=== PATIENT | male | born 1985 | race Caucasian/White ===

== ENCOUNTER 2018-07-28 18:23 | Inpatient (IN) ==
--- NOTE | 2018-07-28 19:49 | Emergency Department Note ---
Disposition Clinical Impression: Suicidal ideation, Medical clearance for psychiatric admission Disposition: Still a Patient Condition: Undetermined Forms: ED Satisfaction Letter Time of Disposition: 01:07 Psych HPI - General Chief Complaint: ED Psychiatric Symptoms Stated Complaint: SI Time Seen by Provider: 07/28/18 19:26 Source: patient Mode of arrival: ambulatory Limitations: no limitations Nursing Notes Reviewed: Yes Vital Signs Reviewed: Yes - History of Present Illness HPI Narrative: 33-year-old male arrives to the emergency department with suicidal ideation. The patient described to me that he was having a large amount of stress. The patient states that he subsequently was feeling suicidal with plans to "blow my brains out, run in front of her truck, Jourdan someone and smoke all the crack until he has enough balls to do what he needs to do". The patient continues to describe to me that he suicidal and states that he wanted to just give the multiple bottles of pills were given overdose. The patient denies any other complaints at this time. - Related Data Allergies Allergy/AdvReac Type Severity Reaction Status Date / Time No Known Allergies Allergy Verified 07/28/18 18:41 All systems ED: reviewed and negative except as stated. Constitutional: Denies: fever, chills, weakness ENT ED: Denies: dysphagia Cardiovascular: Denies: chest pain Respiratory: Denies: dyspnea Gastrointestinal: Denies: abdominal pain Musculoskeletal: Reports: back pain (chronic) Neurological: Reports: headache (chronic) Psychiatric: Reports: depression, suicidal thoughts, homicidal thoughts. Denies: auditory hallucinations, visual hallucinations Past Medical History - Past Medical History Attestation: Yes The following information was validated with the patient. Source: patient Medical history: Reports: no medical history Psychiatric history: Reports: ADHD - Social History Smoking Status: Current every day smoker Alcohol use: Reports: none Drug use: Reports: none Physical Exam - General Limitations: no limitations General appearance: alert, in no apparent distress - Head Head exam: atraumatic - Eye Eye exam: Present: normal appearance, PERRL, EOMI - ENT ENT exam: normal exam, normal oropharynx, mucous membranes moist - Neck Neck exam: Present: normal inspection, full ROM, trachea midline - Chest Chest inspection: Present: normal inspection, symmetric chest wall rise - Respiratory Respiratory exam: Absent: respiratory distress - Cardiovascular Cardiovascular exam: Present: regular rate - Extremities Exam Extremities exam: Present: normal inspection, full ROM - Neurological Exam Neurological exam: Present: alert, oriented X3 - Psychiatric Psychiatric exam: Present: agitated, homicidal ideation, suicidal ideation - Skin Skin exam: Present: warm, dry, intact, normal color Course - Reevaluation(s) Reevaluation #1: Medically cleared. 1A called and will evaluate patient. Time: 21:01 Vital Signs Temperature 98.1 F 07/28/18 18:37 Pulse Rate 75 07/28/18 18:37 Respiratory Rate 16 07/28/18 18:37 Blood Pressure 134/67 07/28/18 18:37 O2 Sat by Pulse Oximetry 97 07/28/18 18:37 Temperature 98.1 F 07/28/18 18:37 Pulse Rate 75 07/28/18 18:37 Respiratory Rate 16 07/28/18 18:37 Blood Pressure 134/67 07/28/18 18:37 O2 Sat by Pulse Oximetry 97 07/28/18 18:37 Oxygen Delivery Oxygen Delivery Room Air Psych - MDM Narrative Medical decision making narrative: Patient care signed out to Dr. Quan - Lab Data Result diagrams: 07/28/18 19:50 07/28/18 19:50 Lab Results 07/28/18 07/28/18 07/28/18 Range/Units 19:50 19:50 20:13 WBC 11.6 H (4.3-11.1) K/mcL RBC 4.93 (4.19-5.50) M/mcL Hgb 15.4 (12.9-16.9) g/dL Hct 45.5 (37.5-50.1) % MCV 92.3 (83.0-100.0) fL MCH 31.2 (28.0-33.3) pg MCHC 33.8 (31.6-35.5) g/dL RDW 13.2 (11.5-14.5) % Plt Count 245 (140-400) K/mcL MPV 10.7 (9.4-12.4) fL Immature Gran % 0.3 (0-4) % Seg Neutrophils % 58.5 % Lymphocytes % 29.2 % Monocytes % 11.3 % Eosinophils % 0.3 % Basophils % 0.4 % Neutrophils # 6.8 (1.6-8.9) K/mcL Lymphocytes # 3.4 (0.6-4.6) K/mcL Monocytes # 1.3 (0.0-1.3) K/mcL Eosinophils # 0.0 (0.0-0.6) K/mcL Basophils # 0.1 (0.0-0.2) K/mcL Sodium 138 (136-145) mEq/L Potassium 4.0 (3.5-5.1) mEq/L Chloride 106 (98-107) mEq/L Carbon Dioxide 26 (23-29) mEq/L BUN 14 (6-20) mg/dL Creatinine 0.69 L (0.70-1.30) mg/dL Est GFR ( Amer) > 60 (> 60) Est GFR (Non-Af Amer) > 60 (> 60) BUN/Creatinine Ratio 20 (6-26) Glucose 90 (70-105) mg/dL Calculated Osmolality 286 (280-300) Calcium 9.5 (8.6-10.3) mg/dL Urine Color Yellow (Yellow) Urine Clarity Clear (Clear) Urine pH 6.0 (5.0-8.0) pH Units Ur Specific [place] 1.019 (1.010-1.025) Urine Protein Negative (Neg-Trace) mg/dL Urine Glucose (UA) Normal (Normal) mg/dL Urine Ketones 15 H (Negative) mg/dL Urine Blood Negative (Negative) Urine Nitrite Negative (Negative) Urine Bilirubin Negative (Negative) Urine Urobilinogen Normal (Normal) mg/dL Ur Leukocyte Esterase Negative (Negative) Salicylates < 2.5 L (15.0-30.0) mg/dL Urine Opiates Screen (Orvldp=866) ng/mL Acetaminophen < 10 L (10-20) mcg/mL Ur Barbiturates Screen (Icccqz=153) ng/mL Ur Phencyclidine Scrn (Cutoff=25) ng/mL Ur Amphetamines Screen (Ndjdpy=0985) ng/mL U Benzodiazepines Scrn (Vaaqyv=798) ng/mL Urine Cocaine Screen (Cutoff= 300) ng/mL U Marijuana (THC) Screen (Cutoff = 50) ng/mL Ur Drug Screen Interp Ethyl Alcohol < 10 (Less than 10) mg/dL 07/28/18 Range/Units 20:13 WBC (4.3-11.1) K/mcL RBC (4.19-5.50) M/mcL Hgb (12.9-16.9) g/dL Hct (37.5-50.1) % MCV (83.0-100.0) fL MCH (28.0-33.3) pg MCHC (31.6-35.5) g/dL RDW (11.5-14.5) % Plt Count (140-400) K/mcL MPV (9.4-12.4) fL Immature Gran % (0-4) % Seg Neutrophils % % Lymphocytes % % Monocytes % % Eosinophils % % Basophils % % Neutrophils # (1.6-8.9) K/mcL Lymphocytes # (0.6-4.6) K/mcL Monocytes # (0.0-1.3) K/mcL Eosinophils # (0.0-0.6) K/mcL Basophils # (0.0-0.2) K/mcL Sodium (136-145) mEq/L Potassium (3.5-5.1) mEq/L Chloride (98-107) mEq/L Carbon Dioxide (23-29) mEq/L BUN (6-20) mg/dL Creatinine (0.70-1.30) mg/dL Est GFR ( Amer) (> 60) Est GFR (Non-Af Amer) (> 60) BUN/Creatinine Ratio (6-26) Glucose (70-105) mg/dL Calculated Osmolality (280-300) Calcium (8.6-10.3) mg/dL Urine Color (Yellow) Urine Clarity (Clear) Urine pH (5.0-8.0) pH Units Ur Specific [place] (1.010-1.025) Urine Protein (Neg-Trace) mg/dL Urine Glucose (UA) (Normal) mg/dL Urine Ketones (Negative) mg/dL Urine Blood (Negative) Urine Nitrite (Negative) Urine Bilirubin (Negative) Urine Urobilinogen (Normal) mg/dL Ur Leukocyte Esterase (Negative) Salicylates (15.0-30.0) mg/dL Urine Opiates Screen Negative (Mutnxb=091) ng/mL Acetaminophen (10-20) mcg/mL Ur Barbiturates Screen Negative (Wlktsw=885) ng/mL Ur Phencyclidine Scrn Negative (Cutoff=25) ng/mL Ur Amphetamines Screen Negative (Eqimmn=4221) ng/mL U Benzodiazepines Scrn Negative (Babjce=204) ng/mL Urine Cocaine Screen Negative (Cutoff= 300) ng/mL U Marijuana (THC) Screen Negative (Cutoff = 50) ng/mL Ur Drug Screen Interp See Below Ethyl Alcohol (Less than 10) mg/dL Psychiatric Medical Clearance - Medical Clearance Checklist Medical History: No Social History Section defined Current Vitals: Last Vital Signs Temp 98.1 F 07/28/18 18:37 Pulse 75 07/28/18 18:37 Resp 16 07/28/18 18:37 BP 134/67 07/28/18 18:37 Pulse Ox 97 07/28/18 18:37 Psychiatric Lab Panel: Drug Levels and Toxicity 07/28/18 07/28/18 19:50 20:13 Urine Opiates Screen Negative Acetaminophen < 10 L Ur Barbiturates Screen Negative Ur Phencyclidine Scrn Negative Ur Amphetamines Screen Negative U Benzodiazepines Scrn Negative Urine Cocaine Screen Negative U Marijuana (THC) Screen Negative Ethyl Alcohol < 10 Abnormal Labs: Abnormal lab results WBC 11.6 K/mcL (4.3-11.1) H 07/28/18 19:50 0.69 mg/dL (0.70-1.30) L 07/28/18 19:50 15 mg/dL (Negative) H 07/28/18 20:13 Salicylates < 2.5 mg/dL (15.0-30.0) L 07/28/18 19:50 Acetaminophen < 10 mcg/mL (10-20) L 07/28/18 19:50 Statement of Medical Clearance: I have evaluated the patient, reviewed diagnostic information, and certify that the patient's medical condition is sufficiently stable that transfer to the psychiatric unit does not pose a significant risk of deterioration.
[2018-07-28 20:05] LABS: Basophils # 0.1 K/mcL (0.0-0.2); Basophils % 0.4 %; Eosinophils % 0.3 %; Hematocrit 45.5 % (37.5-50.1); Hemoglobin 15.4 g/dL (12.9-16.9); Immature Granulocytes % 0.3 % (0-4); Lymphocytes # 3.4 K/mcL (0.6-4.6); Lymphocytes % 29.2 %; Mean Corpuscular HGB Conc 33.8 g/dL (31.6-35.5); Mean Corpuscular Hemoglobin 31.2 pg (28.0-33.3); Mean Corpuscular Volume 92.3 fL (83.0-100.0); Mean Platelet Volume 10.7 fL (9.4-12.4); Monocytes # 1.3 K/mcL (0.0-1.3); Monocytes % 11.3 %; Neutrophils # 6.8 K/mcL (1.6-8.9); Platelet Count 245 K/mcL (140-400); Red Blood Count 4.93 M/mcL (4.19-5.50); Red Cell Distribution Width 13.2 % (11.5-14.5); Segmented Neutrophils % 58.5 %; White Blood Count 11.6 K/mcL (4.3-11.1)
[2018-07-28 20:24] LABS: Acetaminophen < 10 mcg/mL (10-20); BUN/Creatinine Ratio 20 (6-26); Blood Urea Nitrogen 14 mg/dL (6-20); Calcium 9.5 mg/dL (8.6-10.3); Carbon Dioxide 26 mEq/L (23-29); Chloride 106 mEq/L (98-107); Ethanol < 10 mg/dL (Less than 10); Glucose 90 mg/dL (70-105); Osmolality,Calculated 286 (280-300); Salicylate < 2.5 mg/dL (15.0-30.0); Sodium 138 mEq/L (136-145); eGFR For African Americans > 60 (> 60); eGFR For Non-African Americans > 60 (> 60)
[2018-07-28 20:28] LABS: Bilirubin,Urine Negative (Negative); Blood,Urine Negative (Negative); Clarity,Urine Clear (Clear); Color,Urine Yellow (Yellow); Glucose,Urine (UA) Normal (Normal); Ketones,Urine 15 mg/dL (Negative); Leukocyte Esterase,Urine Negative (Negative); Nitrite,Urine Negative (Negative); Protein,Urine Negative (Neg-Trace); Specific Gravity,Urine 1.019 (1.010-1.025); Urobilinogen,Urine Normal (Normal)
[2018-07-28 20:38] LABS: Amphetamine Screen,Urine Negative ng/mL (Cutoff=1000); Barbiturate Screen,Urine Negative ng/mL (Cutoff=200); Benzodiazepines Screen,Urine Negative ng/mL (Cutoff=200); Cannabinoid Screen,Urine Negative ng/mL (Cutoff = 50); Cocaine Screen,Urine Negative ng/mL (Cutoff= 300); Opiate Screen,Urine Negative ng/mL (Cutoff=300); Phencyclidine Screen,Urine Negative ng/mL (Cutoff=25)
--- NOTE | 2018-07-28 20:43 | Emergency Department Note ---
Disposition Clinical Impression: Suicidal ideation, Medical clearance for psychiatric admission Disposition: Admitted As Inpatient Condition: Fair Time of Disposition: 01:00 General Adult HPI - General Chief complaint: ED Psychiatric Symptoms Stated complaint: SI Time Seen by Provider: 07/28/18 19:26 Source: patient Mode of arrival: ambulatory Limitations: no limitations - History of Present Illness Pain Scale: 0 - Related Data Home Medications Medication Instructions Recorded Confirmed Ibuprofen [Ibu-200] 600 mg PO DAILY PRN 07/29/18 07/29/18 Allergies Allergy/AdvReac Type Severity Reaction Status Date / Time No Known Allergies Allergy Verified 07/29/18 08:20 Constitutional: Denies: fever, chills, weakness ENT ED: Denies: dysphagia Cardiovascular: Denies: chest pain Respiratory: Denies: dyspnea Gastrointestinal: Denies: abdominal pain Musculoskeletal: Reports: back pain (chronic) Neurological: Reports: headache (chronic) Psychiatric: Reports: depression, suicidal thoughts, homicidal thoughts. Denies: auditory hallucinations, visual hallucinations Past Medical History - Past Medical History Medical history: Reports: no medical history Psychiatric history: Reports: ADHD - Social History Smoking Status: Current every day smoker Alcohol use: Reports: none Drug use: Reports: none Physical Exam - General Limitations: no limitations General appearance: alert, in no apparent distress Course Vital Signs Temperature 98.1 F 07/28/18 18:37 Pulse Rate 75 07/28/18 18:37 Respiratory Rate 16 07/28/18 18:37 Blood Pressure 134/67 07/28/18 18:37 O2 Sat by Pulse Oximetry 97 07/28/18 18:37 Temperature 98.1 F 07/28/18 19:26 Pulse Rate 66 07/28/18 19:26 Respiratory Rate 18 07/28/18 19:26 Blood Pressure 118/80 07/28/18 19:26 O2 Sat by Pulse Oximetry 97 07/28/18 18:37 Oxygen Delivery Oxygen Delivery Room Air Medical Decision Making - Lab Data Result diagrams: 07/28/18 19:50 07/28/18 19:50 Lab Results 07/28/18 07/28/18 07/28/18 Range/Units 19:50 19:50 20:13 WBC 11.6 H (4.3-11.1) K/mcL RBC 4.93 (4.19-5.50) M/mcL Hgb 15.4 (12.9-16.9) g/dL Hct 45.5 (37.5-50.1) % MCV 92.3 (83.0-100.0) fL MCH 31.2 (28.0-33.3) pg MCHC 33.8 (31.6-35.5) g/dL RDW 13.2 (11.5-14.5) % Plt Count 245 (140-400) K/mcL MPV 10.7 (9.4-12.4) fL Immature Gran % 0.3 (0-4) % Seg Neutrophils % 58.5 % Lymphocytes % 29.2 % Monocytes % 11.3 % Eosinophils % 0.3 % Basophils % 0.4 % Neutrophils # 6.8 (1.6-8.9) K/mcL Lymphocytes # 3.4 (0.6-4.6) K/mcL Monocytes # 1.3 (0.0-1.3) K/mcL Eosinophils # 0.0 (0.0-0.6) K/mcL Basophils # 0.1 (0.0-0.2) K/mcL Sodium 138 (136-145) mEq/L Potassium 4.0 (3.5-5.1) mEq/L Chloride 106 (98-107) mEq/L Carbon Dioxide 26 (23-29) mEq/L BUN 14 (6-20) mg/dL Creatinine 0.69 L (0.70-1.30) mg/dL Est GFR ( Amer) > 60 (> 60) Est GFR (Non-Af Amer) > 60 (> 60) BUN/Creatinine Ratio 20 (6-26) Glucose 90 (70-105) mg/dL Calculated Osmolality 286 (280-300) Calcium 9.5 (8.6-10.3) mg/dL Urine Color Yellow (Yellow) Urine Clarity Clear (Clear) Urine pH 6.0 (5.0-8.0) pH Units Ur Specific [place] 1.019 (1.010-1.025) Urine Protein Negative (Neg-Trace) mg/dL Urine Glucose (UA) Normal (Normal) mg/dL Urine Ketones 15 H (Negative) mg/dL Urine Blood Negative (Negative) Urine Nitrite Negative (Negative) Urine Bilirubin Negative (Negative) Urine Urobilinogen Normal (Normal) mg/dL Ur Leukocyte Esterase Negative (Negative) Salicylates < 2.5 L (15.0-30.0) mg/dL Urine Opiates Screen (Ixztgn=301) ng/mL Acetaminophen < 10 L (10-20) mcg/mL Ur Barbiturates Screen (Fsnwrl=719) ng/mL Ur Phencyclidine Scrn (Cutoff=25) ng/mL Ur Amphetamines Screen (Huvgfx=5826) ng/mL U Benzodiazepines Scrn (Oqmagp=931) ng/mL Urine Cocaine Screen (Cutoff= 300) ng/mL U Marijuana (THC) Screen (Cutoff = 50) ng/mL Ur Drug Screen Interp Ethyl Alcohol < 10 (Less than 10) mg/dL 07/28/18 Range/Units 20:13 WBC (4.3-11.1) K/mcL RBC (4.19-5.50) M/mcL Hgb (12.9-16.9) g/dL Hct (37.5-50.1) % MCV (83.0-100.0) fL MCH (28.0-33.3) pg MCHC (31.6-35.5) g/dL RDW (11.5-14.5) % Plt Count (140-400) K/mcL MPV (9.4-12.4) fL Immature Gran % (0-4) % Seg Neutrophils % % Lymphocytes % % Monocytes % % Eosinophils % % Basophils % % Neutrophils # (1.6-8.9) K/mcL Lymphocytes # (0.6-4.6) K/mcL Monocytes # (0.0-1.3) K/mcL Eosinophils # (0.0-0.6) K/mcL Basophils # (0.0-0.2) K/mcL Sodium (136-145) mEq/L Potassium (3.5-5.1) mEq/L Chloride (98-107) mEq/L Carbon Dioxide (23-29) mEq/L BUN (6-20) mg/dL Creatinine (0.70-1.30) mg/dL Est GFR ( Amer) (> 60) Est GFR (Non-Af Amer) (> 60) BUN/Creatinine Ratio (6-26) Glucose (70-105) mg/dL Calculated Osmolality (280-300) Calcium (8.6-10.3) mg/dL Urine Color (Yellow) Urine Clarity (Clear) Urine pH (5.0-8.0) pH Units Ur Specific [place] (1.010-1.025) Urine Protein (Neg-Trace) mg/dL Urine Glucose (UA) (Normal) mg/dL Urine Ketones (Negative) mg/dL Urine Blood (Negative) Urine Nitrite (Negative) Urine Bilirubin (Negative) Urine Urobilinogen (Normal) mg/dL Ur Leukocyte Esterase (Negative) Salicylates (15.0-30.0) mg/dL Urine Opiates Screen Negative (Avljpw=004) ng/mL Acetaminophen (10-20) mcg/mL Ur Barbiturates Screen Negative (Mztxcu=496) ng/mL Ur Phencyclidine Scrn Negative (Cutoff=25) ng/mL Ur Amphetamines Screen Negative (Lgxnbn=5718) ng/mL U Benzodiazepines Scrn Negative (Cnuffd=825) ng/mL Urine Cocaine Screen Negative (Cutoff= 300) ng/mL U Marijuana (THC) Screen Negative (Cutoff = 50) ng/mL Ur Drug Screen Interp See Below Ethyl Alcohol (Less than 10) mg/dL Attestation Statement - Attestation Attestation: I examined this patient and my medical decision-making was reviewed with the Resident Physician. I agree with the documented findings, disposition and treatment plan as described except to the extent set forth below. Patient to the ED for suicidal thoughts with multiple plans of how he would kill himself. He cites recent stressors. Patient, cooperative on exam. Plan. Med ica clearance and by by 1A. Patient was evaluated by 1A. Awaiting disposition. Patient was signed out to rental clerk.
--- NOTE | 2018-07-29 01:49 | Emergency Department Note ---
Disposition Clinical Impression: Suicidal ideation, Medical clearance for psychiatric admission Disposition: Admitted As Inpatient Condition: Fair Referrals: NONE,PCP [Primary Care Provider] - Forms: ED Satisfaction Letter Time of Disposition: 01:49 General Adult HPI - General Chief complaint: ED Psychiatric Symptoms Stated complaint: SI Time Seen by Provider: 07/28/18 19:26 Source: patient Mode of arrival: ambulatory Limitations: no limitations - History of Present Illness Pain Scale: 0 - Related Data Allergies Allergy/AdvReac Type Severity Reaction Status Date / Time No Known Allergies Allergy Verified 07/28/18 18:41 Constitutional: Denies: fever, chills, weakness ENT ED: Denies: dysphagia Cardiovascular: Denies: chest pain Respiratory: Denies: dyspnea Gastrointestinal: Denies: abdominal pain Musculoskeletal: Reports: back pain (chronic) Neurological: Reports: headache (chronic) Psychiatric: Reports: depression, suicidal thoughts, homicidal thoughts. Denies: auditory hallucinations, visual hallucinations Past Medical History - Past Medical History Medical history: Reports: no medical history Psychiatric history: Reports: ADHD - Social History Smoking Status: Current every day smoker Alcohol use: Reports: none Drug use: Reports: none Physical Exam - General Limitations: no limitations General appearance: alert, in no apparent distress Course Course Narrative: This patient was signed out to me at shift change from Dr. Solis and Dr. Ramirez. Please refer to their notes for complete details of the history and physical examination. Patient presented with suicidal ideation and has been medically cleared. At shift change when the patient was signed out to me he is awaiting psychiatric evaluation. Patient was seen and evaluated in the emergency department by the [address] psychiatry department and after evaluation patient is being admitted to the [address] psychiatric unit. Vital Signs Temperature 98.1 F 07/28/18 18:37 Pulse Rate 75 07/28/18 18:37 Respiratory Rate 16 07/28/18 18:37 Blood Pressure 134/67 07/28/18 18:37 O2 Sat by Pulse Oximetry 97 07/28/18 18:37 Temperature 98.1 F 07/28/18 18:37 Pulse Rate 75 07/28/18 18:37 Respiratory Rate 16 07/28/18 18:37 Blood Pressure 134/67 07/28/18 18:37 O2 Sat by Pulse Oximetry 97 07/28/18 18:37 Oxygen Delivery Oxygen Delivery Room Air Medical Decision Making - Lab Data Result diagrams: 07/28/18 19:50 07/28/18 19:50 Lab Results 07/28/18 07/28/18 07/28/18 Range/Units 19:50 19:50 20:13 WBC 11.6 H (4.3-11.1) K/mcL RBC 4.93 (4.19-5.50) M/mcL Hgb 15.4 (12.9-16.9) g/dL Hct 45.5 (37.5-50.1) % MCV 92.3 (83.0-100.0) fL MCH 31.2 (28.0-33.3) pg MCHC 33.8 (31.6-35.5) g/dL RDW 13.2 (11.5-14.5) % Plt Count 245 (140-400) K/mcL MPV 10.7 (9.4-12.4) fL Immature Gran % 0.3 (0-4) % Seg Neutrophils % 58.5 % Lymphocytes % 29.2 % Monocytes % 11.3 % Eosinophils % 0.3 % Basophils % 0.4 % Neutrophils # 6.8 (1.6-8.9) K/mcL Lymphocytes # 3.4 (0.6-4.6) K/mcL Monocytes # 1.3 (0.0-1.3) K/mcL Eosinophils # 0.0 (0.0-0.6) K/mcL Basophils # 0.1 (0.0-0.2) K/mcL Sodium 138 (136-145) mEq/L Potassium 4.0 (3.5-5.1) mEq/L Chloride 106 (98-107) mEq/L Carbon Dioxide 26 (23-29) mEq/L BUN 14 (6-20) mg/dL Creatinine 0.69 L (0.70-1.30) mg/dL Est GFR ( Amer) > 60 (> 60) Est GFR (Non-Af Amer) > 60 (> 60) BUN/Creatinine Ratio 20 (6-26) Glucose 90 (70-105) mg/dL Calculated Osmolality 286 (280-300) Calcium 9.5 (8.6-10.3) mg/dL Urine Color Yellow (Yellow) Urine Clarity Clear (Clear) Urine pH 6.0 (5.0-8.0) pH Units Ur Specific [place] 1.019 (1.010-1.025) Urine Protein Negative (Neg-Trace) mg/dL Urine Glucose (UA) Normal (Normal) mg/dL Urine Ketones 15 H (Negative) mg/dL Urine Blood Negative (Negative) Urine Nitrite Negative (Negative) Urine Bilirubin Negative (Negative) Urine Urobilinogen Normal (Normal) mg/dL Ur Leukocyte Esterase Negative (Negative) Salicylates < 2.5 L (15.0-30.0) mg/dL Urine Opiates Screen (Jqwobm=867) ng/mL Acetaminophen < 10 L (10-20) mcg/mL Ur Barbiturates Screen (Khdkde=313) ng/mL Ur Phencyclidine Scrn (Cutoff=25) ng/mL Ur Amphetamines Screen (Gtfvgi=9937) ng/mL U Benzodiazepines Scrn (Jozjux=512) ng/mL Urine Cocaine Screen (Cutoff= 300) ng/mL U Marijuana (THC) Screen (Cutoff = 50) ng/mL Ur Drug Screen Interp Ethyl Alcohol < 10 (Less than 10) mg/dL 07/28/18 Range/Units 20:13 WBC (4.3-11.1) K/mcL RBC (4.19-5.50) M/mcL Hgb (12.9-16.9) g/dL Hct (37.5-50.1) % MCV (83.0-100.0) fL MCH (28.0-33.3) pg MCHC (31.6-35.5) g/dL RDW (11.5-14.5) % Plt Count (140-400) K/mcL MPV (9.4-12.4) fL Immature Gran % (0-4) % Seg Neutrophils % % Lymphocytes % % Monocytes % % Eosinophils % % Basophils % % Neutrophils # (1.6-8.9) K/mcL Lymphocytes # (0.6-4.6) K/mcL Monocytes # (0.0-1.3) K/mcL Eosinophils # (0.0-0.6) K/mcL Basophils # (0.0-0.2) K/mcL Sodium (136-145) mEq/L Potassium (3.5-5.1) mEq/L Chloride (98-107) mEq/L Carbon Dioxide (23-29) mEq/L BUN (6-20) mg/dL Creatinine (0.70-1.30) mg/dL Est GFR ( Amer) (> 60) Est GFR (Non-Af Amer) (> 60) BUN/Creatinine Ratio (6-26) Glucose (70-105) mg/dL Calculated Osmolality (280-300) Calcium (8.6-10.3) mg/dL Urine Color (Yellow) Urine Clarity (Clear) Urine pH (5.0-8.0) pH Units Ur Specific [place] (1.010-1.025) Urine Protein (Neg-Trace) mg/dL Urine Glucose (UA) (Normal) mg/dL Urine Ketones (Negative) mg/dL Urine Blood (Negative) Urine Nitrite (Negative) Urine Bilirubin (Negative) Urine Urobilinogen (Normal) mg/dL Ur Leukocyte Esterase (Negative) Salicylates (15.0-30.0) mg/dL Urine Opiates Screen Negative (Yggxlr=571) ng/mL Acetaminophen (10-20) mcg/mL Ur Barbiturates Screen Negative (Ibkrgm=159) ng/mL Ur Phencyclidine Scrn Negative (Cutoff=25) ng/mL Ur Amphetamines Screen Negative (Avjmtr=4408) ng/mL U Benzodiazepines Scrn Negative (Eqkfxz=387) ng/mL Urine Cocaine Screen Negative (Cutoff= 300) ng/mL U Marijuana (THC) Screen Negative (Cutoff = 50) ng/mL Ur Drug Screen Interp See Below Ethyl Alcohol (Less than 10) mg/dL
[2018-07-29] MEDS ORDERED: Haloperidol Lactate 5 MG/ML VIAL IM PRN (02:04)
[2018-07-29] MEDS ORDERED: Mag Hydrox/Al Hydrox/Simeth 30 ML UDC PO PRN (02:04)
[2018-07-29] MEDS ORDERED: *HR* LORazepam 1 MG TABLET PO PRN (02:04)
[2018-07-29] MEDS ORDERED: *HR* LORazepam 2 MG/ML VIAL IM PRN (02:04)
[2018-07-29] MEDS ORDERED: MOM Conc 10 ML UD.LIQ PO PRN (02:04)
[2018-07-29] MEDS: hydrOXYzine pamoate 25 MG CAPSULE PO PRN ×2 (03:12→20:54)
[2018-07-29] MEDS: Acetaminophen 325 MG TABLET PO PRN (03:12)
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
[2018-07-29] MEDS: Nicotine 21 MG PATCH.TD24 TD SCH (15:12)
[2018-07-30] MEDS: Nicotine 21 MG PATCH.TD24 TD SCH (09:21)
[2018-07-30] MEDS: hydrOXYzine pamoate 25 MG CAPSULE PO PRN ×3 (09:22→20:44)
--- NOTE | 2018-07-30 16:18 | Psychiatry Progress Note ---
Date of Encounter: 07/30/18 Time of Encounter: 15:00 Subjective Interval history: Patient took his Seroquel last evening and stated it did not do much to help him sleep. He has not been participating on the unit much as he does not like to be around people. He has eaten very little and has been eating cookies and snacks as he can take them off his tray cause he does not want to sit in the day room to eat. He has taken a dose or two of Seroquel to help calm his agitation and feels it may help some, but could do more. He denies any adverse side effects. He still does not feel hopeful and focuses on not wanting to be here. We talked briefly about housing once he is ready for discharge. He wants to potentially go back to [place]. I told him that the social science teacher may be able to facilitate that, but he would have to wait to meet with him on Wednesday. He verbalizes wanting to smoke and tells me that he may try to eat later tonight once dinner gets here. He will wait till others are done. I will let nursing know that they may delay a bit in removing the trays. He will not comment on SI. He tells me, "not much has changed". No HI or threat to others. He will continue to stay in his room and rest as not to be agitated by others on the unit. Review of Systems Psychiatric: Reports: depression, anxiety, abnormal sleep pattern, suicidal ideation (passive), change in appetite, anhedonia, difficulty concentrating, hopelessness, irritability, mood swings Results - Vital Signs Vital Signs: Temp Pulse Resp BP Pulse Ox 98.3 F 95 18 101/70 96 07/30/18 09:00 07/30/18 09:00 07/30/18 09:00 07/30/18 09:00 07/30/18 09:00 Assessment and Plan (1) Suicidal ideation Current visit: Yes Status: Acute Plan: Continue hospitalization, Close observation, Suicide Precautions per unit protocol Risks, benefits, side effects, alternatives discussed w/pt: Yes (Continue use of Seroquel. He is less agressive in his responses today) Patient agreeable to treatment: No (on a 72 hour hold) (2) Mood disorder as late effect of traumatic brain injury Current visit: Yes Status: Acute Plan: Continue hospitalization, Close observation, Suicide Precautions per unit protocol, Encourage participation in unit milieu, Monitor sleep Risks, benefits, side effects, alternatives discussed w/pt: Yes (Increase Seroquel to 200 mg po qHS and 100 mg po bid prn) Patient agreeable to treatment: No (72 hour hold) Consult Discharge Plan - Plan Referrals: NONE,PCP [Primary Care Provider] - Psychiatry Exam - Constitutional Vitals: Temp Pulse Resp BP Pulse Ox 98.3 F 95 18 101/70 96 07/30/18 09:00 07/30/18 09:00 07/30/18 09:00 07/30/18 09:00 07/30/18 09:00 General appearance: age & developmentally appropriate, well-groomed - Musculoskeletal Gait: normal Station: stiff Strength & Tone: normal for patient - Psychiatric Patient Orientation: Yes Person, Yes Time, Yes Place, Yes Circumstance Level of alertness: Alert, Follows commands Behavior: cooperative (more so today), anxious (much less anxious) Psychomotor activity: Normal Eye Contact: Maintains Eye Contact Mood Description: Anxious Affect description: congruent with mood Speech Volume: Normal Speech pattern: normal rate, normal rhythm, normal tone, fluent Language & Vocabulary: consistent with education Thought Process: Intact, Linear, Circumstantial, Perseveration (less so today), [place] Thought Content: Yes Suicidal ideation (passive, no intent or active plan) Attention Span Ability: Capable of Focused Attention Memory Description: Grossly Intact Patient Reliability: Reliable Historian Fund of knowledge: Yes average Intelligence Estimate: Average Judgment: Fair (Improved.) Insight: Partial
[2018-07-30] MEDS: Acetaminophen 325 MG TABLET PO PRN (20:46)
[2018-07-31] MEDS: hydrOXYzine pamoate 25 MG CAPSULE PO PRN ×4 (07:37→20:21)
[2018-07-31] MEDS: Nicotine 21 MG PATCH.TD24 TD SCH (10:26)
--- NOTE | 2018-07-31 11:11 | Psychiatry Progress Note ---
Date of Encounter: 07/31/18 Time of Encounter: 10:45 Subjective Interval history: When I asked the patient how he is doing, he makes a joke and states "how would you fckin' be doin' if you were locked in this place want to go have a smoke". I acknowledged his frustration. I asked him how the increase in Seroquel effected him. He tells me he does not think it is helping. He thinks he only slept 3 or 4 hours cumulatively In the past 24 hours. Nursing has him documented having slept over 8 hours last night. He denies any side effects of the Seroquel. He is much less agitated, less aggressive in his speech, calmer on phone conversations and in talking to other patients and staff. He was out yesterday afternoon and evening on the unit eating dinner with other patients, which was a change from his previous behavior. He denies suicidal homicidal ideation. He denies auditory or visual hallucinations. He still feels anxious but is not as focused on his depression, is no longer perseverating on his extensive life issues that brought him in here depressed and anxious. We discussed discharge planning. He is still unsure if he wants to go back to [facility] or stay in [place] [facility]. He states that he will try and think things through tonight and present options for the social services designee tomorrow that he thinks will be functional. He is trying to get phone numbers for contacts to have a place to go. Review of Systems Psychiatric: Reports: depression, anxiety, abnormal sleep pattern, suicidal ideation (passive), change in appetite, anhedonia, difficulty concentrating, hopelessness, irritability, mood swings Results - Vital Signs Vital Signs: Temp Pulse Resp BP Pulse Ox 98 F 79 18 104/69 96 07/31/18 09:00 07/31/18 09:00 07/31/18 09:00 07/31/18 09:00 07/31/18 09:00 Assessment and Plan (1) Suicidal ideation Current visit: Yes Status: Acute Risks, benefits, side effects, alternatives discussed w/pt: Yes (Continue use of Seroquel. He is less agressive in his responses today) Patient agreeable to treatment: No (on a 72 hour hold) (2) Mood disorder as late effect of traumatic brain injury Current visit: Yes Status: Acute Plan: Continue hospitalization, Close observation, Suicide Precautions per unit protocol, Group Therapy, Monitor sleep Risks, benefits, side effects, alternatives discussed w/pt: Yes (Continue Seroquel to 200 mg po qHS and 100 mg po bid prn) Patient agreeable to treatment: No (72 hour hold) Consult Discharge Plan - Plan Referrals: NONE,PCP [Primary Care Provider] - Psychiatry Exam - Constitutional Vitals: Temp Pulse Resp BP Pulse Ox 98 F 79 18 104/69 96 07/31/18 09:00 07/31/18 09:00 07/31/18 09:00 07/31/18 09:00 07/31/18 09:00 General appearance: age & developmentally appropriate, thin Additional observations: AIMS=0 - Musculoskeletal Gait: normal Station: stiff (less) Strength & Tone: normal for patient - Psychiatric Patient Orientation: Yes Person, Yes Time, Yes Place, Yes Circumstance Level of alertness: Alert, Follows commands Behavior: cooperative, anxious (less), agitated (no) Psychomotor activity: Normal Eye Contact: Maintains Eye Contact Mood Description: Anxious Affect description: congruent with mood Speech Volume: Normal Speech pattern: normal rate, normal rhythm, normal tone, fluent Language & Vocabulary: consistent with education Thought Process: Intact, Logical, Linear, Goal Oriented Thought Content: Yes Intact Attention Span Ability: Capable of Focused Attention Memory Description: Grossly Intact Patient Reliability: Questionable Historian Fund of knowledge: Yes average Intelligence Estimate: Average Judgment: Fair Insight: Partial
[2018-08-01] MEDS: Nicotine 21 MG PATCH.TD24 TD SCH (09:10)
--- NOTE | 2018-08-01 09:30 | Psychiatry Progress Note ---
Date of Encounter: 08/01/18 Time of Encounter: 09:00 Subjective Interval history: Chief complaint: "I need a stronger nerve pill. Those a doing shit." Patient very demanding. He was overheard telling the nurse who was walking him to my office "I would be happy to kick upside the head" and then said that she had an attitude when he walked into my office. He had numerous complaints including not being allowed to smoke. He said that his Seroquel is not helping him sleep. He said the Vistaril is not strong enough. He talked about Xanax and that he had seen that worked wonders for people in the past. We spoke again about trying an anticonvulsant such as Depakote to help with his irritability and anger and mood lability related to his traumatic brain injury however he was not interested in this. He was willing to increase his Seroquel. He denied suicidal or homicidal thoughts ideations or plans. No psychosis. He said he was further upset because he found out his fiance had gotten back with her ex- while he was in here. Review of Systems Psychiatric: Reports: abnormal sleep pattern, irritability, mood swings Results - Vital Signs Vital Signs: Temp Pulse Resp BP Pulse Ox 98.1 F 75 16 103/67 96 07/31/18 19:50 07/31/18 19:50 07/31/18 19:50 07/31/18 19:50 07/31/18 19:50 Assessment and Plan (1) Mood disorder as late effect of traumatic brain injury Current visit: Yes Status: Acute Plan: Continue hospitalization, Close observation, Suicide Precautions per unit protocol, Encourage participation in unit milieu, Group Therapy, Monitor sleep, Monitor appetite Additional Plan: Increase Seroquel to 300 mg by mouth daily at bedtime for further mood stabilization. We discussed risk benefit side effects of this alternative treatment options he gave informed consent. [facility] to see him for possible placement there. Encourage group attendance. Risks, benefits, side effects, alternatives discussed w/pt: Yes (Continue Seroquel to 200 mg po qHS and 100 mg po bid prn) Patient agreeable to treatment: No (72 hour hold) Consult Discharge Plan - Plan Referrals: NONE,PCP [Primary Care Provider] - Psychiatry Exam - Constitutional Vitals: Temp Pulse Resp BP Pulse Ox 98.1 F 75 16 103/67 96 07/31/18 19:50 07/31/18 19:50 07/31/18 19:50 07/31/18 19:50 07/31/18 19:50 General appearance: age & developmentally appropriate - Musculoskeletal Gait: normal Station: relaxed Strength & Tone: normal for patient - Psychiatric Patient Orientation: Yes Person, Yes Time, Yes Place, Yes Circumstance Level of alertness: Alert Behavior: dramatic Psychomotor activity: Normal Eye Contact: Maintains Eye Contact Mood Description: Irritable Patient description of mood: "Pissed" Affect description: congruent with mood Speech Volume: Normal Speech pattern: normal rate Language & Vocabulary: consistent with education Thought Process: Intact Thought Content: No Suicidal ideation, No Homicidal ideation Perceptual Disturbances: No Auditory hallucinations, No Visual hallucinations Attention Span Ability: Capable of Focused Attention Memory Description: Grossly Intact Patient Reliability: Reliable Historian Fund of knowledge: Yes below average Intelligence Estimate: Below Average Judgment: Limited Insight: Minimal
[2018-08-01] MEDS: hydrOXYzine pamoate 25 MG CAPSULE PO PRN ×2 (11:53→20:14)
--- NOTE | 2018-08-02 09:02 | Discharge Summary ---
Date of Encounter: 08/02/18 Time of Encounter: 08:45 Diagnosis - Discharge Diagnosis (1) Mood disorder as late effect of traumatic brain injury Status: Acute Medications - Discharge Medications Prescriptions: Cyclobenzaprine [Flexeril] 5 mg PO TID PRN #45 tablet PRN Reason: Spasms hydrOXYzine pamoate [HydrOXYzine Pamoate] 50 mg PO TID PRN #90 capsule PRN Reason: Anxiety Quetiapine Fumarate [Seroquel] 100 mg PO BID PRN #30 tablet PRN Reason: Anxiety Quetiapine Fumarate [Seroquel] 400 mg PO HS #15 tablet Cyclobenzaprine [Flexeril] 5 mg PO TID PRN #45 tablet 08/02/18 [Rx] Quetiapine Fumarate [Seroquel] 100 mg PO BID PRN #30 tablet 08/02/18 [Rx] Quetiapine Fumarate [Seroquel] 400 mg PO HS #15 tablet 08/02/18 [Rx] hydrOXYzine pamoate [HydrOXYzine Pamoate] 50 mg PO TID PRN #90 capsule 08/02/18 [Rx] Allergy/AdvReac Type Severity Reaction Status Date / Time No Known Allergies Allergy Verified 07/29/18 08:20 Results Procedures and tests throughout hospitalization: Completed Lab Orders Category Date Time Status Acetaminophen Stat Lab 07/28/18 19:50 Completed Basic Metabolic Panel Stat Lab 07/28/18 19:50 Completed Complete Blood Count [HEME] Stat Lab 07/28/18 19:50 Completed Drug Screen, Urine [UCHEM] Stat Lab 07/28/18 20:13 Completed Ethanol Stat Lab 07/28/18 19:50 Completed Salicylate Stat Lab 07/28/18 19:50 Completed Urinalysis reflex Microscopic [URIN] Stat Lab 07/28/18 20:13 Completed Provider Date of admission: 07/29/18 02:01 Primary care physician: PCP NONE Discharging clinician: Kori Garcia Psychiatry Exam - Constitutional Vitals: Temp Pulse Resp BP Pulse Ox 98.6 F 86 16 113/71 97 08/01/18 19:37 08/01/18 19:37 08/01/18 19:37 08/01/18 19:37 08/01/18 09:00 General appearance: age & developmentally appropriate, well-groomed, well- nourished - Musculoskeletal Gait: normal Station: relaxed Strength & Tone: normal for patient - Psychiatric Patient Orientation: Yes Person, Yes Time, Yes Place Level of alertness: Alert Behavior: calm, cooperative Psychomotor activity: Normal Eye Contact: Maintains Eye Contact Mood Description: Euthymic/stable Patient description of mood: Good Affect description: congruent with mood, full range Speech Volume: Normal Speech pattern: normal rate, normal rhythm, normal tone, fluent, spontaneous Language & Vocabulary: consistent with education Thought Process: Linear, Goal Oriented Thought Content: No Suicidal ideation, No Homicidal ideation, No Overt delusions Perceptual Disturbances: No Auditory hallucinations, No Visual hallucinations Attention Span Ability: Capable of Focused Attention Memory Description: Grossly Intact Patient Reliability: Reliable Historian Fund of knowledge: Yes abstraction ability, Yes aware of current events Intelligence Estimate: Average Judgment: Good Insight: Full Hospital Course Hospital course: Mr. Grimaldo is a 33 year old male who was admitted for depression and psychotic symptoms. He was started on Seroquel which he had done well on in the past which was titrated up. He was encouraged to consider Depakote or another mood stabilizer given his history of a TBI and agitation at times however he declined this and had capacity to make this decision. He did have some periods of belligerent behavior on the unit toward staff when he felt his needs are not getting met consistent with antisocial personality disorder. He used when nece ssary Vistaril for anxiety.Patient was educated of diagnosis and the risk- benefit side effects of this alternative treatment options and was monitored for responsiveness and side effects. Mood anxiety sleep and appetite interest improved as did future orientation. Self-harm thoughts subsided, thinking cleared, psychosis resolved, and mood stabilized. Patient was able to attend both individual and group therapy sessions as well as meet with the psychiatrist daily and urged to discuss any medication or treatment issues or other concerns. The patient was educated primarily by verbal means about their diagnosis and manifestations in their life. The option for treatment including group and individual therapy programming was offered to the patient in addition to the use of medications with all their potential risks, benefits, and side effects as well as the risks of not taking medication and non-adhereance were discussed with the patient at length. The patient was given the opportunity to ask questions and was noted to participate in the treatment in the planning process. The patient felt ready and eager to be discharged from the inpatient psychiatric unit to continue on with treatment as an outpatient. The patient agreed that is they were safe for this disposition. The patient was considered to be able to participate in informed consent and decision making with respect to medical, legal, and financial issues of the time of discharge. At the time of discharge the patient adamantly denied any concerns for lethality including suicidal or homicidal thoughts ideations or plans and was future oriented toward ongoing mental health care, medical follow-up and sobriety. Time spent discussing smoking cessation with patient: 3 to 10 minutes Does patient wish to continue nicotine replacement upon disc: No - Time Spent with Patient Total time spent providing and/or coordinating discharge services: 25 Less than 30 minutes Specific discharge activities: Interval history reviewed. Available labs reviewed . Psychotherapy provided. Patient had an opportunity to ask questions and address concerns. Patient was in agreement with the treatment plan. The risks benefits and side effects of medications were discussed with the patient, including alternatives and treatment. The patient was educated on the abstaining from any alcohol or illicit substances, following up with all scheduled appointments, and taking all medications as prescribed. Assessment and Plan - Patient/Caregiver Discharge Instructions Activity: resume usual activities as tolerated Diet: regular diet Additional Instructions: Patient is going to [facility] clinic.Continue current medications. Follow up with outpatient mental health. Encourage continued therapy in a group or individual setting. The patient was discharged to home. - Follow up Plan Follow up with: NONE,PCP [Primary Care Provider] - Functional capacity at discharge: independent ambulation Overall status at discharge: Stable Disposition: Home, Self-Care Quality - Multiple Antipsychotics Patient discharged on 2 or more antipsychotic medications: No Procedures - Procedures Procedures: Medication Management, Crisis Stabilization, Supportive Therapy, Group Therapy, Psychoeducational Therapy
[2018-08-02] MEDS: Nicotine 21 MG PATCH.TD24 TD SCH (09:24)
[2018-08-02] MEDS: hydrOXYzine pamoate 25 MG CAPSULE PO PRN ×2 (10:18→20:46)
--- NOTE | 2018-08-03 08:24 | Psychiatry Progress Note ---
Date of Encounter: 08/02/18 Time of Encounter: 12:00 Subjective Interval history: Patient's discharge was originally completed because it was thought that [facility] would have a bed for him yesterday. They did not. He felt if he was discharged to the street his suicidal thoughts would worsen. He has made some comments of vague thoughts of hurting people but has no intent or plan and no target in mind. He said sometimes he just gets frustrated. He does have the medication has been helpful with this. Review of Systems Psychiatric: Reports: abnormal sleep pattern, irritability, mood swings Results - Vital Signs Vital Signs: Temp Pulse Resp BP Pulse Ox 98.6 F 87 14 109/62 99 08/02/18 20:30 08/02/18 20:30 08/02/18 20:30 08/02/18 20:30 08/02/18 20:30 Assessment and Plan (1) Mood disorder as late effect of traumatic brain injury Current visit: Yes Status: Acute Plan: Continue hospitalization, Close observation, Encourage participation in unit milieu, Group Therapy, Monitor sleep, Monitor appetite Additional Plan: Awaiting a bed at [facility] to open up for him. Encourage groups. Continue medications. Risks, benefits, side effects, alternatives discussed w/pt: Yes (Continue Seroquel to 200 mg po qHS and 100 mg po bid prn) Patient agreeable to treatment: No (72 hour hold) Consult Discharge Plan - Plan Additional Instructions: Patient is going to [facility] clinic.Continue current medications. Follow up with outpatient mental health. Encourage continued therapy in a group or individual setting. The patient was discharged to home. Referrals: NONE,PCP [Primary Care Provider] - Prescriptions: Cyclobenzaprine [Flexeril] 5 mg PO TID PRN #45 tablet PRN Reason: Spasms hydrOXYzine pamoate [HydrOXYzine Pamoate] 50 mg PO TID PRN #90 capsule PRN Reason: Anxiety Quetiapine Fumarate [Seroquel] 100 mg PO BID PRN #30 tablet PRN Reason: Anxiety Quetiapine Fumarate [Seroquel] 400 mg PO HS #15 tablet Psychiatry Exam - Constitutional Vitals: Temp Pulse Resp BP Pulse Ox 98.6 F 87 14 109/62 99 08/02/18 20:30 08/02/18 20:30 08/02/18 20:30 08/02/18 20:30 08/02/18 20:30 General appearance: age & developmentally appropriate - Musculoskeletal Gait: normal Station: relaxed Strength & Tone: normal for patient - Psychiatric Patient Orientation: Yes Person, Yes Time, Yes Place Level of alertness: Alert Behavior: calm, cooperative Psychomotor activity: Normal Eye Contact: Maintains Eye Contact Mood Description: Euthymic/stable Patient description of mood: ok Affect description: congruent with mood, full range Speech Volume: Normal Speech pattern: normal rate, normal rhythm, normal tone, fluent, spontaneous Language & Vocabulary: consistent with education Thought Process: Linear, Goal Oriented Thought Content: No Suicidal ideation, No Homicidal ideation, No Overt delusions Perceptual Disturbances: No Auditory hallucinations, No Visual hallucinations Attention Span Ability: Capable of Focused Attention Memory Description: Grossly Intact Patient Reliability: Reliable Historian Fund of knowledge: Yes abstraction ability, Yes aware of current events Intelligence Estimate: Average Judgment: Good Insight: Full
[2018-08-03] MEDS: Nicotine 21 MG PATCH.TD24 TD SCH (09:19)
--- NOTE | 2018-08-03 09:30 | Psychiatry Progress Note ---
Date of Encounter: 08/03/18 Time of Encounter: 09:10 Subjective Interval history: - Discharge Diagnosis (1) Mood disorder as late effect of traumatic brain injury Status: Acute Medications - Discharge Medications Prescriptions: Cyclobenzaprine [Flexeril] 5 mg PO TID PRN #45 tablet PRN Reason: Spasms hydrOXYzine pamoate [HydrOXYzine Pamoate] 50 mg PO TID PRN #90 capsule PRN Reason: Anxiety Quetiapine Fumarate [Seroquel] 100 mg PO BID PRN #30 tablet PRN Reason: Anxiety Quetiapine Fumarate [Seroquel] 400 mg PO HS #15 tablet Cyclobenzaprine [Flexeril] 5 mg PO TID PRN #45 tablet 08/02/18 [Rx] Quetiapine Fumarate [Seroquel] 100 mg PO BID PRN #30 tablet 08/02/18 [Rx] Quetiapine Fumarate [Seroquel] 400 mg PO HS #15 tablet 08/02/18 [Rx] hydrOXYzine pamoate [HydrOXYzine Pamoate] 50 mg PO TID PRN #90 capsule 08/02/18 [Rx] Allergy/AdvReac Type Severity Reaction Status Date / Time No Known Allergies Allergy Verified 07/29/18 08:20 Results Procedures and tests throughout hospitalization: Completed Lab Orders Category Date Time Status Acetaminophen Stat Lab 07/28/18 19:50 Completed Basic Metabolic Panel Stat Lab 07/28/18 19:50 Completed Complete Blood Count [HEME] Stat Lab 07/28/18 19:50 Completed Drug Screen, Urine [UCHEM] Stat Lab 07/28/18 20:13 Completed Ethanol Stat Lab 07/28/18 19:50 Completed Salicylate Stat Lab 07/28/18 19:50 Completed Urinalysis reflex Microscopic [URIN] Stat Lab 07/28/18 20:13 Completed Provider Date of admission: 07/29/18 02:01 Primary care physician: PCP NONE Discharging clinician: Kori Garcia Psychiatry Exam - Constitutional Vitals: Temp Pulse Resp BP Pulse Ox 98.6 F 86 16 113/71 97 08/01/18 19:37 08/01/18 19:37 08/01/18 19:37 08/01/18 19:37 08/01/18 09:00 General appearance: age & developmentally appropriate, well-groomed, well- nourished - Musculoskeletal Gait: normal Station: relaxed Strength & Tone: normal for patient - Psychiatric Patient Orientation: Yes Person, Yes Time, Yes Place Level of alertness: Alert Behavior: calm, cooperative Psychomotor activity: Normal Eye Contact: Maintains Eye Contact Mood Description: Euthymic/stable Patient description of mood: Good Affect description: congruent with mood, full range Speech Volume: Normal Speech pattern: normal rate, normal rhythm, normal tone, fluent, spontaneous Language & Vocabulary: consistent with education Thought Process: Linear, Goal Oriented Thought Content: No Suicidal ideation, No Homicidal ideation, No Overt delusions Perceptual Disturbances: No Auditory hallucinations, No Visual hallucinations Attention Span Ability: Capable of Focused Attention Memory Description: Grossly Intact Patient Reliability: Reliable Historian Fund of knowledge: Yes abstraction ability, Yes aware of current events Intelligence Estimate: Average Judgment: Good Insight: Full Hospital Course Hospital course: Mr. Grimaldo is a 33 year old male who was admitted for depression and psychotic symptoms. He was started on Seroquel which he had done well on in the past which was titrated up. He was encouraged to consider Depakote or another mood stabilizer given his history of a TBI and agitation at times however he declined this and had capacity to make this decision. He did have some periods of belligerent behavior on the unit toward staff when he felt his needs are not getting met consistent with antisocial personality disorder. He used when necessary Vistaril for anxiety.Patient was educated of diagnosis and the risk- benefit side effects of this alternative treatment options and was monitored for responsiveness and side effects. Mood anxiety sleep and appetite interest improved as did future orientation. Self-harm thoughts subsided, thinking cleared, psychosis resolved, and mood stabilized. Patient was able to attend both individual and group therapy sessions as well as meet with the psychiatrist daily and urged to discuss any medication or treatment issues or other concerns. The patient was educated primarily by verbal means about their diagnosis and manifestations in their life. The option for treatment including group and individual therapy programming was offered to the patient in addition to the use of medications with all their potential risks, benefits, and side effects as well as the risks of not taking medication and non-adhereance were discussed with the patient at length. The patient was given the opportunity to ask questions and was noted to participate in the treatment in the planning process. The patient felt ready and eager to be discharged from the inpatient psychiatric unit to continue on with treatment as an outpatient. The patient agreed that is they were safe for this disposition. The patient was considered to be able to participate in informed consent and decision making with respect to medical, legal, and financial issues of the time of discharge. At the time of discharge the patient adamantly denied any concerns for lethality including s uicidal or homicidal thoughts ideations or plans and was future oriented toward ongoing mental health care, medical follow-up and sobriety. Time spent discussing smoking cessation with patient: 3 to 10 minutes Does patient wish to continue nicotine replacement upon disc: No - Time Spent with Patient Total time spent providing and/or coordinating discharge services: 25 Less than 30 minutes Specific discharge activities: Interval history reviewed. Available labs reviewed . Psychotherapy provided. Patient had an opportunity to ask questions and address concerns. Patient was in agreement with the treatment plan. The risks benefits and side effects of medications were discussed with the patient, including alternatives and treatment. The patient was educated on the abstaining from any alcohol or illicit substances, following up with all scheduled appointments, and taking all medications as prescribed. Assessment and Plan - Patient/Caregiver Discharge Instructions Activity: resume usual activities as tolerated Diet: regular diet Additional Instructions: Patient is going to [facility].Continue current medications. Follow up with outpatient mental health. Encourage continued therapy in a group or individual setting. The patient was discharged to home. - Follow up Plan Follow up with: NONE,PCP [Primary Care Provider] - Functional capacity at discharge: independent ambulation Overall status at discharge: Stable Disposition: Home, Self-Care Quality - Multiple Antipsychotics Patient discharged on 2 or more antipsychotic medications: No Procedures - Procedures Procedures: Medication Management, Crisis Stabilization, Supportive Therapy, Group Therapy, Psychoeducational Therapy Results - Vital Signs Vital Signs: Temp Pulse Resp BP Pulse Ox 98.6 F 87 14 109/62 99 08/02/18 20:30 08/02/18 20:30 08/02/18 20:30 08/02/18 20:30 08/02/18 20:30 Assessment and Plan (1) Mood disorder as late effect of traumatic brain injury Current visit: Yes Status: Acute Additional Plan: Discharged today Risks, benefits, side effects, alternatives discussed w/pt: Yes (Continue Seroquel to 200 mg po qHS and 100 mg po bid prn) Patient agreeable to treatment: No (72 hour hold) Consult Discharge Plan - Plan Additional Instructions: Patient is going to [facility] clinic.Continue current medications. Follow up with outpatient mental health. Encourage continued therapy in a group or individual setting. The patient was discharged to home. Referrals: NONE,PCP [Primary Care Provider] - Prescriptions: Cyclobenzaprine [Flexeril] 5 mg PO TID PRN #45 tablet PRN Reason: Spasms hydrOXYzine pamoate [HydrOXYzine Pamoate] 50 mg PO TID PRN #90 capsule PRN Reason: Anxiety Quetiapine Fumarate [Seroquel] 100 mg PO BID PRN #30 tablet PRN Reason: Anxiety Quetiapine Fumarate [Seroquel] 400 mg PO HS #15 tablet Psychiatry Exam - Constitutional Vitals: Temp Pulse Resp BP Pulse Ox 98.6 F 87 14 109/62 99 08/02/18 20:30 08/02/18 20:30 08/02/18 20:30 08/02/18 20:30 08/02/18 20:30 General appearance: age & developmentally appropriate, well-groomed, well- nourished - Musculoskeletal Gait: normal Station: relaxed Strength & Tone: normal for patient - Psychiatric Patient Orientation: Yes Person, Yes Time, Yes Place Level of alertness: Alert Behavior: calm, cooperative Psychomotor activity: Normal Eye Contact: Maintains Eye Contact Mood Description: Euthymic/stable Patient description of mood: good Affect description: congruent with mood, full range Speech Volume: Normal Speech pattern: normal rate, normal rhythm, normal tone, fluent, spontaneous Language & Vocabulary: consistent with education Thought Process: Linear, Goal Oriented Thought Content: No Suicidal ideation, No Homicidal ideation, No Overt delusions Perceptual Disturbances: No Auditory hallucinations, No Visual hallucinations Attention Span Ability: Capable of Focused Attention Memory Description: Grossly Intact Patient Reliability: Reliable Historian Fund of knowledge: Yes abstraction ability, Yes aware of current events Intelligence Estimate: Average Judgment: Good Insight: Full
[2018-08-03 10:06] VITALS: BP 98/52
== END 2018-08-03 10:15 | disposition home or self-care (01) | DRG 754 ==
LOC: EMEROOARM 18:23 → 1ANU 07-29 02:01 → SUATTDRO 07-29 02:01 → 1ANU 07-29 02:23
PROVIDERS: ADMIT Psychiatry & Neurology Psychiatry; ATTEND Psychiatry & Neurology Psychiatry